=== PATIENT | male | born 1945 | race Caucasian/White ===

== ENCOUNTER 2019-11-30 05:48 | Outpatient (CLI) | payer BC ==
[~2019-11-30] VITALS: Ht 180 cm; Wt 102.7 kg
[2019-11-30] MEDS ORDERED: VALS1TAB76 PO (13:01)
[2019-11-30] MEDS ORDERED: LOVA40TA2 PO (13:01)
== END 2019-11-30 13:05 | disposition home or self-care (01) ==
LOC: PREOP 05:48
PROVIDERS: ATTEND Specialist
DX: Z01.818 Encounter for other preprocedural examination (principal)

== ENCOUNTER 2019-12-02 07:51 | Day surgery (SDC) | payer BC, MEDICARE ==
[~2019-12-02] VITALS: Ht 180 cm; Wt 102.7 kg
[~2019-12-02 07:51] MED LIST: LOVA40TA2 PO; VALS1TAB76 PO
[2019-12-02 08:00] VITALS: BP 160/78
[2019-12-02] MEDS: TETRACAINE 0.5% OPHTH SOLN 4 ML BTL (SINGLE DOSE ONLY) OU PRN ×4 (08:11→08:44)
[2019-12-02] MEDS ORDERED: POVIDONE (BETADINE) OPHTH SOLN 5% 30 ML OP ONE (08:15)
[2019-12-02] MEDS ORDERED: TIMOLOL MALEATE 0.5% 5 ML (TIMOPTIC) BTL OU PRN (08:15)
[2019-12-02] MEDS ORDERED: LIDOCAINE PF 1% 2 ML VIAL IR PRN (08:15)
[2019-12-02] MEDS ORDERED: MOXIFLOXACIN OPHTH SOLN 5 MG/ML 0.3 ML SYRINGE OP ONE (08:15)
[2019-12-02] MEDS: CYCLOPENTOLATE 1% (CYCLOGYL) 2 ML DROPS OP SCH ×3 (08:24→08:45)
[2019-12-02] MEDS: PHENYLEPHRINE 10% OPHTH (NEO-SYN) 5 ML BTL OU SCH ×3 (08:24→08:45)
[2019-12-02] MEDS ORDERED: MIDAZOLAM 2 MG/2 ML (VERSED) VIAL ONE (09:02)
--- NOTE | 2019-12-02 09:02 | Ophthalmologist Pre-Op Note ---
Pre-Operative Progress Note H&P Reviewed The H&P was reviewed, patient examined and no changes noted. Date H&P Reviewed: Dec 02, 2019 Time H&P Reviewed: 09:01 Pre-Op Dx Cataract, Left Eye VALERIE BARNES MD Dec 02, 2019 09:02
--- NOTE | 2019-12-02 09:26 | Ophthalmology Operative Report ---
Cataract removal/placement IOL PREOPERATIVE DIAGNOSIS: Cataract Left Eye POSTOPERATIVE DIAGNOSIS: Cataract Left Eye PROCEDURE: Cataract removal and placement of posterior chamber implant, left eye SURGEON: Dylon Barnes ANESTHESIA: Topical with sedation COMPLICATIONS: None ESTIMATED BLOOD LOSS: Minimal DESCRIPTION OF PROCEDURE: After proper informed consent was obtained, the patient, a [id number] male, was taken to the Operating Room and the left eye was anesthetized with tetracaine. The left eye was then prepped and draped in the usual manner. A wire lid speculum was placed. A paracentesis was made at the left hand position. Preservative free lidocaine was injected into the anterior chamber followed by viscoelastic. A clear corneal incision was made in the temporal position. A capsulorrhexis was preformed and the central nuclear and cortical material were removed. The posterior capsule was polished and an Edgardo 19.5 AU00T0 was placed into the capsular bag. The residual viscoelastic was aspirated and balanced saline solution was injected into the anterior chamber. Moxifloxacin was injected into the anterior chamber. The wound was checked and found to be water tight. The patient tolerated the procedure well without complications. DYLON BARNES MD Dec 02, 2019 09:26
[2019-12-02] MEDS ORDERED: acetaZOLAMIDE ER 500 MG CAP (DIAMOX SEQUELS) PO ONE (09:30)
[2019-12-02 09:33] VITALS: BP 122/66
--- NOTE | 2019-12-02 13:05 | Anesthesia-General Post-Op ---
MAC Patient Condition Mental Status/LOC: Same as Preop Cardiovascular: Satisfactory Nausea/Vomiting: Absent Respiratory: Satisfactory Pain: Controlled Complications: Absent Post Op Complications Complications None Follow Up Care/Instructions Patient Instructions None needed. Anesthesiology Discharge Order Discharge Order Patient is doing well, no complaints, stable vital signs, no apparent adverse anesthesia problems. No complications reported per nursing. RUBEN SKELTON CRNA Dec 02, 2019 13:05
== END 2019-12-02 09:33 | disposition home or self-care (01) ==
LOC: SDC 07:51
PROVIDERS: ATTEND Specialist
DX: H25.12 Age-related nuclear cataract, left eye (principal); I10 Essential (primary) hypertension; E78.00 Pure hypercholesterolemia, unspecified; Z79.899 Other long term (current) drug therapy; Z87.891 Personal history of nicotine dependence; Z80.0 Family history of malignant neoplasm of digestive organs; Z80.1 Family history of malignant neoplasm of trachea, bronchus and lung
CPT/HCPCS: 66984; V2632